=== PATIENT | male | born 2000 | race Caucasian/White ===

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

== ENCOUNTER 2020-02-08 07:40 | Emergency (ER) | payer BC, SELFPAY ==
[~2020-02-08] VITALS: Ht 165.1 cm; Wt 61.7 kg
[2020-02-08 07:44] VITALS: Ht 165.1 cm; Wt 61.7 kg
[2020-02-08 08:34] VITALS: BP 125/88
== END 2020-02-08 08:34 | disposition home or self-care (01) ==
LOC: ED 07:40
DX: R05 Cough (principal); R09.89 Other specified symptoms and signs involving the circulatory and respiratory systems; Z20.828 Contact with and (suspected) exposure to other viral communicable diseases
CPT/HCPCS: U0003